=== PATIENT | male | born 1990 | race Native Hawaiian/Other Pacific Islander ===

== ENCOUNTER 2017-06-21 10:01 | Emergency (ER) | payer BC, OTHER ==
[~2017-06-21] VITALS: Ht 167.6 cm; Wt 74.8 kg
--- NOTE | 2017-06-21 10:17 | NUR ---
A/OX4, CAME TO ER WITH C/O FEVER, HEADACHE, FEELINGW WEAK. AFEBRILE. VSS NAD RR EVEN AND UNLABORED. SEEN AND EVALUATED BY ER
[2017-06-21] MEDS ORDERED: IV NS 0.9% 1,000 ML IV ONE ×2 (10:30)
[2017-06-21] MEDS ORDERED: ONDANSETRON HCL/PF - ER 4 MG/2 ML VIAL IV ONE (10:30)
--- NOTE | 2017-06-21 10:40 | NUR ---
NEW IV STARTED ON LAC, 20 G. PATIENT MEDICATED PER MD ORDERS.
[2017-06-21] MEDS ORDERED: ONDANSETRON HCL/PF 4 MG/2 ML VIAL ONE (10:45)
[2017-06-21 12:01] VITALS: BP 138/72
--- NOTE | 2017-06-21 12:02 | NUR ---
IV removed. Catheter intact and site benign. Pressure and 4x4 applied to site. No bleeding noted. Patient discharged to home in stable condition. Written and verbal after care instructions given. Patient verbalizes understanding of instruction.
== END 2017-06-21 12:02 | disposition home or self-care (01) ==
LOC: ER 10:02
DX: J06.9 Acute upper respiratory infection, unspecified (principal); F10.10 Alcohol abuse, uncomplicated
CPT/HCPCS: 96361; 96374; 99285; A4606; J2405 ×2; Z7610